=== PATIENT | female | born 1965 | race Asian ===

== ENCOUNTER → 2016-11-24 | Outpatient (CLI) | payer BC ==
[2016-11-24 09:15] LABS: ADD SCAN DIFF NO
[2016-11-24 09:18] LABS: BASOPHILS % 0.8 % (0.0-2.0); EOSINOPHILS # 0.1 10^3/ul (0.0-0.5); EOSINOPHILS % 1.9 % (0.0-7.0); HEMATOCRIT 39.9 % (37.0-47.0); HEMOGLOBIN 13.1 g/dl (12.0-16.0); LYMPHOCYTES # 1.2 10^3/ul (0.8-2.9); LYMPHOCYTES % 31.8 % (15.0-51.0); MEAN CORPUSCULAR HEMOGLOBIN 29.2 pg (29.0-33.0); MEAN CORPUSCULAR HGB CONC 32.8 g/dl (32.0-37.0); MEAN CORPUSCULAR VOLUME 89.1 fl (82.0-101.0); MEAN PLATELET VOLUME 9.4 fl (7.4-10.4); MONOCYTE # 0.3 10^3/ul (0.3-0.9); MONOCYTES % 7.2 % (0.0-11.0); NEUTROPHIL # 2.1 10^3/ul (1.6-7.5); PLATELET COUNT 394 10^3/UL (140-415); RED BLOOD COUNT 4.48 10^6/ul (4.20-5.40); RED CELL DISTRIBUTION WIDTH 13.5 % (11.5-14.5); WHITE BLOOD COUNT 3.6 10^3/ul (4.8-10.8)
[2016-11-24 09:40] LABS: ALBUMIN 4.9 g/dl (3.3-4.9); ALBUMIN/GLOBULIN RATIO 1.48; BILIRUBIN,INDIRECT 0.4 mg/dl (0-1.1); BILIRUBIN,TOTAL 0.4 mg/dl (0.2-1.3); CALCIUM 9.1 mg/dl (8.4-10.2); CREATININE 0.65 mg/dl (0.44-1.00); POTASSIUM 4.2 mmol/L (3.5-5.1); TOTAL PROTEIN 8.2 g/dl (6.1-8.1)
[2016-11-24 09:53] LABS: INR 0.91; PROTIME 12.3 Sec (12.2-14.2)
[2016-11-24 09:54] LABS: PARTIAL THROMBOPLASTIN TIME 34.5 Sec (25.0-35.0)
[2016-11-24 10:48] LABS: ADD UMIC YES; UR ASCORBIC ACID NEGATIVE (NEGATIVE); UR BILIRUBIN (Dip) NEGATIVE (NEGATIVE); UR BLOOD (Dip) 2+ mg/dL (NEGATIVE); UR CLARITY CLEAR (CLEAR); UR COLOR COLORLESS (YELLOW); UR GLUCOSE (Dip) NEGATIVE (NEGATIVE); UR KETONES (Dip) NEGATIVE (NEGATIVE); UR LEUKOCYTE ESTERASE (Dip) NEGATIVE Leu/ul (NEGATIVE); UR NITRITE (Dip) NEGATIVE (NEGATIVE); UR RBC 1 /HPF (0-5); UR SPECIFIC GRAVITY (Dip) 1.002 (1.003-1.030); UR TOTAL PROTEIN (Dip) NEGATIVE (NEGATIVE); UR UROBILINOGEN (Dip) NEGATIVE (NEGATIVE)
--- NOTE | 2016-11-24 12:34 | RADRPT ---
PROCEDURE: XR Chest. CLINICAL INDICATION: Cough. Bronchitis. TECHNIQUE: Two views. Frontal and lateral. COMPARISON: No prior study is available for comparison. FINDINGS: The lungs are clear. The heart size is normal. There is no pleural effusion. There is no pneumothorax. IMPRESSION: 1. Normal chest radiograph. RPTAT: QQ .Jason Rizzo MD, MD Date Time Electronically viewed and signed by .Jason Rizzo MD, on 11/24/2016 12:34 .R/
--- NOTE | 2016-11-24 13:47 | RADRPT ---
Vent Rate: 65 bpm RR Interval: 0 msec GA Interval: 172 msec QRS Duration: 76 msec QT Interval: 426 msec QTC Interval: 443 msec P-R-T [place] [facility]: 65 - 30 - 60 degrees Normal sinus rhythm Normal ECG Electronically Signed By: Brien Early [id number]
== END | disposition home or self-care (01) ==
LOC: LAB 08:43
PROVIDERS: ATTEND Internal Medicine
DX: J20.9 Acute bronchitis, unspecified (principal); D64.9 Anemia, unspecified; E78.5 Hyperlipidemia, unspecified; N39.0 Urinary tract infection, site not specified
CPT/HCPCS: 71020; 80053; 80061; 81001; 84702; 85025; 85610; 85730; 93005

== ENCOUNTER → 2017-02-20 | Outpatient (CLI) | payer BC ==
[2017-02-20 14:59] LABS: ABNORMAL IP MESSAGE 1; HEMATOCRIT 37.2 % (37.0-47.0); HEMOGLOBIN 11.9 g/dl (12.0-16.0); MEAN CORPUSCULAR HEMOGLOBIN 26.9 pg (29.0-33.0); MEAN PLATELET VOLUME 9.6 fl (7.4-10.4); NUCLEATED RED BLOOD CELLS% 0.1 /100WBC (0.0-0.0); PLATELET COUNT 302 10^3/UL (140-415); RED BLOOD COUNT 4.43 10^6/ul (4.20-5.40)
[2017-02-20 15:02] LABS: ADD UMIC YES; UR ASCORBIC ACID NEGATIVE (NEGATIVE); UR BILIRUBIN (Dip) NEGATIVE (NEGATIVE); UR BLOOD (Dip) 1+ mg/dL (NEGATIVE); UR CLARITY CLEAR (CLEAR); UR COLOR COLORLESS (YELLOW); UR GLUCOSE (Dip) NEGATIVE (NEGATIVE); UR KETONES (Dip) NEGATIVE (NEGATIVE); UR LEUKOCYTE ESTERASE (Dip) NEGATIVE Leu/ul (NEGATIVE); UR NITRITE (Dip) NEGATIVE (NEGATIVE); UR RBC 0 /HPF (0-5); UR SPECIFIC GRAVITY (Dip) 1.001 (1.003-1.030); UR TOTAL PROTEIN (Dip) NEGATIVE (NEGATIVE); UR UROBILINOGEN (Dip) NEGATIVE (NEGATIVE)
[2017-02-20 15:16] LABS: POSITIVE DIFF @See below
[2017-02-20 16:06] LABS: ANISOCYTOSIS 1+ (0-0); MICROCYTOSIS 1+ (0-0); MONOCYTES % (M) 6 % (0-11); MYELOCYTES % (M) 1 % (0-0); PLATELET ESTIMATE NORMAL; POLYCHROMASIA 1+ (0-0); PROMYELOCYTES #M 1.1 10^3/ul (0-0); PROMYELOCYTES % (M) 3 % (0-0); REACTIVE LYMPHOCYTES% (M) 2 % (0-0)
== END | disposition home or self-care (01) ==
LOC: LAB 13:37
PROVIDERS: ATTEND Internal Medicine
DX: N39.0 Urinary tract infection, site not specified (principal)
CPT/HCPCS: 81001; 85025; 87086

== ENCOUNTER → 2017-07-24 | Outpatient (CLI) | END | disposition home or self-care (01) ==

== ENCOUNTER → 2018-02-02 | Outpatient (CLI) | END | disposition home or self-care (01) ==

== ENCOUNTER 2018-06-10 10:06 | Inpatient (IN) | payer BC ==
[~2018-06-10] VITALS: Ht 162.6 cm; Wt 60.7 kg
[2018-06-10] MEDS ORDERED: NITROGLYCERIN 2% 1 GM OINT PKT TD STA (10:23)
[2018-06-10] MEDS ORDERED: ASPIRIN 81 MG TAB PO STA (10:23)
[2018-06-10] MEDS ORDERED: NITROGLYCERIN (SL) 0.4 MG TAB SL PRN (10:30)
[2018-06-10] MEDS ORDERED: ONDANSETRON 4 MG INJ IV STA (10:48)
[2018-06-10] MEDS ORDERED: morphine 4 MG/ML VIAL IV STA (10:48)
[2018-06-10] MEDS ORDERED: ANAS1TAB PO (11:04)
[2018-06-10] MEDS ORDERED: ALPR0.254 PO (11:04)
[2018-06-10] MEDS ORDERED: ERGO2000 PO (11:05)
[2018-06-10] MEDS ORDERED: OMEG-135 PO (11:05)
[2018-06-10] MEDS ORDERED: MELO15TA30 PO (11:06)
[2018-06-10] MEDS ORDERED: ACETAMINOPHEN 325 MG TAB PO PRN (12:00)
--- NOTE | 2018-06-10 13:40 | ERD ---
ER Documentation Chief Complaint Chief Complaint INTERMITTENT CHEST PAIN RADITING TO BACK X 2 DAYS HPI Patient is a 52-year-old female who presents with chest pain. Her symptoms started on Thursday. The pain comes and goes and lasts seconds at a time but it is worsening. Now she has shortness of breath with minimal exertion like walking across the parking lot. She describes it as a "pressure". Upon review of old medical records this is the patient's first visit to the emergency department. Her primary doctor is Dr. Phililps. ROS All systems reviewed and are negative except as per history of present illness. Medications Home Meds Reported Medications Meloxicam* (Mobic*) 15 Mg Tablet, 15 MG PO DAILY, #30 TAB 06/10/18 Ergocalciferol (Vitamin D2) (VITAMIN D2) 2,000 Unit Tablet, 2000 UNIT PO DAILY, TAB 06/10/18 Sagle-3 Fatty Acids/Fish Oil (Fish Oil 1,000 mg Capsule) 1 Each Capsule, 1000 EACH PO BID, CAP 06/10/18 Alprazolam* (Alprazolam*) 0.25 Mg Tablet, 0.25 MG PO TID PRN for ANXIETY, TAB 06/10/18 Anastrozole* (Arimidex*) 1 Mg Tablet, 1 MG PO DAILY, #30 TAB 06/10/18 Allergies Allergies: Coded Allergies: adhesive tape (Verified Allergy, Severe, 06/10/18) PMhx/Soc History of Surgery: Yes (Rt. mastectomy) Hx Miscellaneous Medical Probl: Yes (Rt. breast CA, Chemotherapy in 2017) Hx Alcohol Use: No Hx Substance Use: No Hx Tobacco Use: No Smoking Status: Never smoker FmHx Family History: coronary disease Physical Exam Vitals Vital Signs Date Temp Pulse Resp B/P (MAP) Pulse Ox O2 O2 Flow FiO2 Time Delivery Rate 06/10/18 73 20 137/82 100 Nasal 12:21 (100) Cannula 06/10/18 Nasal 11:01 Cannula 06/10/18 99.0 106 18 157/100 98 10:07 (119) Physical Exam Const: No acute distress Head: Atraumatic Eyes: Normal Conjunctiva ENT: Normal External Ears, Nose and Mouth. Neck: Full range of motion. No meningismus. Resp: Clear to auscultation bilaterally Cardio: Regular rate and rhythm, no murmurs Abd: Soft, non tender, non distended. Normal bowel sounds Skin: No petechiae or rashes Back: No midline or flank tenderness Ext: No cyanosis, or edema Neur: Awake and alert Psych: Normal Mood and Affect Result Diagram: 06/10/18 1045 06/10/18 1045 Results 24 hrs Laboratory Tests Test 06/10/18 10:45 White Blood Count 6.9 10^3/ul Red Blood Count 4.64 10^6/ul Hemoglobin 13.6 g/dl Hematocrit 41.4 % Mean Corpuscular Volume 89.2 fl Mean Corpuscular Hemoglobin 29.3 pg Mean Corpuscular Hemoglobin Concent 32.9 g/dl Red Cell Distribution Width 12.6 % Platelet Count 276 10^3/UL Mean Platelet Volume 9.4 fl Immature Granulocytes % 0.300 % Neutrophils % 72.7 % Lymphocytes % 19.9 % Monocytes % 6.3 % Eosinophils % 0.4 % Basophils % 0.4 % Nucleated Red Blood Cells % 0.0 /100WBC Immature Granulocytes # 0.020 10^3/ul Neutrophils # 5.0 10^3/ul Lymphocytes # 1.4 10^3/ul Monocytes # 0.4 10^3/ul Eosinophils # 0.0 10^3/ul Basophils # 0.0 10^3/ul Nucleated Red Blood Cells # 0.0 10^3/ul Sodium Level 140 mmol/L Potassium Level 4.0 mmol/L Chloride Level 103 mmol/L Carbon Dioxide Level 25 mmol/L Anion Gap 12 Blood Urea Nitrogen 13 mg/dl Creatinine 0.54 mg/dl Est Glomerular Filtrat Rate mL/min > 60 mL/min Glucose Level 121 mg/dl Calcium Level 9.8 mg/dl Troponin I < 0.012 ng/ml Current Medications Medications Dose Sig/Jony Start Time Status Last (Trade) Ordered Route PRN Stop Time Admin Dose Reason Admin Aspirin 162 mg ONCE STAT 06/10/18 DC 06/10/18 (Aspirin) PO 10:23 10:56 06/10/18 10:25 1 inch ONCE STAT 06/10/18 DC 06/10/18 Nitroglycerin TD 10:23 10:56 06/10/18 10:25 (Nitroglyceri n 2% Oint) 1 tab Q5M UP TO 3 06/10/18 Nitroglycerin DOSES PRN 10:30 SL pain (Nitroglyceri n (Sl Tab) 0.4 Mg) Morphine 4 mg ONCE STAT 06/10/18 DC 06/10/18 Sulfate IV 10:48 11:00 (morphine) 06/10/18 10:49 Ondansetron 4 mg ONCE STAT 06/10/18 DC 06/10/18 HCl (Zofran IV 10:48 11:00 Inj) 06/10/18 10:49 Ondansetron 4 mg ER BRIDGE 06/10/18 HCl (Zofran PRN IV 12:00 Inj) vomiting 06/11/18 11:59 650 mg ER BRIDGE 06/10/18 Acetaminophen PRN PO pain 12:00 (Tylenol 06/11/18 11:59 Tab) Procedures/MDM EKG #1 read by me: Rate/Rhythm: Sinus tachycardia at a rate of 101 Intervals: Normal Impression: Sinus tachycardia without ischemia EKG #2 read by me: Rate/Rhythm: Regular rate and rhythm at a rate of 72 Intervals: Normal Impression: No evidence of ischemia or arrhythmia Chest x-ray read by radiology. Patient is a 52-year-old female with cardiac risk factors who presents with chest pain. I am concerned for possible acute coronary syndrome. I doubt pneumonia, pneumothorax, pulmonary embolism, or aortic dissection. The patient was given aspirin and nitroglycerin. She will be admitted to the care of Dr. Phillips. I spoke with Dr. Dyer who is covering for Dr. Phillips. Departure Diagnosis: Primary Impression: Chest pain Chest pain type: unspecified Qualified Codes: R07.9 - Chest pain, unspecified Condition: MIRIAM Dwyer MD Jun 10, 2018 13:40
[2018-06-10 15:01] VITALS: Ht 162.6 cm; Wt 60.7 kg
[2018-06-10 15:14] VITALS: BP 133/78; PULSE 80; RESP 19
--- NOTE | 2018-06-10 15:52 | CONS ---
Assessment/Plan Assessment/Plan Assessment/Plan (Daily) atypical chest pain- unclear etiology, r/o for acs need serial trop and ekg. echo pending. consider msk etiology as well - serial trop/ekg - echo - pain mgmt - consider stress in am if not improved. and r/o for ACS Consultation Date/Type/Reason Admit Date/Time Jun 10, 2018 at 11:42 Date of Consultation: Jun 10, 2018 Type of Consult Cardiology Reason for Consultation chest pain Requesting Provider: TRUPTI STEVENSON MD Date/Time of Note DATE: 06/10/18 TIME: 15:48 Hx of Present Illness 52 y.o. with chest pain, states started thursday.at work. resting. has pressure/pain in mid chest going to neck and back. no associated symptoms. no relation to exertion. worse with standing possibly. coming/going every few minutes. lasts a few seconds when it comes. states went to sleep that night, no pain, but had recurrence wed on/off again. then this am noticed increased sob on exertion walking into work. no n/v, dizziness, palpitations, fainting. no diaphoresis or sob with the pain. now with pain in neck and back, soreness lingering. not improved with nsaids. better with morphine she states. ekg negative NSR with poor r wave progression no actue abnl. trop neg x 1 all other systems negative Past Medical History breast ca s/p mastectomy chemo Home Meds Reported Medications Meloxicam* (Mobic*) 15 Mg Tablet, 15 MG PO DAILY, #30 TAB 06/10/18 Ergocalciferol (Vitamin D2) (VITAMIN D2) 2,000 Unit Tablet, 2000 UNIT PO DAILY, TAB 06/10/18 [place]-3 Fatty Acids/Fish Oil (Fish Oil 1,000 mg Capsule) 1 Each Capsule, 1000 EACH PO BID, CAP 06/10/18 Alprazolam* (Alprazolam*) 0.25 Mg Tablet, 0.25 MG PO TID PRN for ANXIETY, TAB 06/10/18 Anastrozole* (Arimidex*) 1 Mg Tablet, 1 MG PO DAILY, #30 TAB 06/10/18 Medications Current Medications Nitroglycerin (Nitroglycerin (Sl Tab) 0.4 Mg) 1 tab Q5M UP TO 3 DOSES PRN SL pain; Start 06/10/18 at 10:30 Ondansetron HCl (Zofran Inj) 4 mg ER BRIDGE PRN IV vomiting; Start 06/10/18 at 12:00; Stop 06/11/18 at 11:59 Acetaminophen (Tylenol Tab) 650 mg ER BRIDGE PRN PO pain; Start 06/10/18 at 12:00; Stop 06/11/18 at 11:59 Alprazolam (Xanax) 0.25 mg TID PRN PO ANXIETY; Start 06/10/18 at 16:00; Status UNV Anastrozole (Arimidex) 1 mg DAILY PO ; Start 06/10/18 at 16:00; Status UNV Meloxicam (Mobic) 15 mg DAILY PO ; Start 06/10/18 at 16:00; Status UNV Miscellaneous Information 2,000 unit DAILY PO ; Start 06/10/18 at 16:00; Status UNV Miscellaneous Information 1,000 each BID PO ; Start 06/10/18 at 21:00; Status UNV Allergies: Coded Allergies: adhesive tape (Verified Allergy, Severe, 06/10/18) Past Surgical History mastectomy Family History Significant Family History: no pertinent family hx Social History Alcohol Use: none Smoking Status: Never smoker Drug Use: none Exam/Review of Systems Vital Signs Vitals Vital Signs Date Temp Pulse Resp B/P (MAP) Pulse Ox O2 O2 Flow FiO2 Time Delivery Rate 06/10/18 97.8 80 19 133/78 96 Room Air 15:14 (96) Exam Constitutional: alert, oriented, well developed Psych: no complaints, nl mood/affect Head: normocephalic, atraumatic Eyes: nl conjunctiva, EOMI, nl lids ENMT: nl external ears & nose, nl lips & teeth, other (reduced rom of neck with ttp R trap) Neck: supple, non-tender Respiratory: clear to auscultation, normal air movement Cardiovascular: regular rate and rhythm; No diastolic murmur, No edema, No jugular venous distention (JVD), No systolic murmur, No S3, No S4 Gastrointestinal: soft, nl liver, spleen, non-tender Musculoskeletal: nl extremities to inspection, nl gait and stance Extremities: normal pulses Neurological: DIGITAL STRATEGY SPECIALIST II-XII intact, nl mental status, nl speech, nl strength Skin: nl turgor Labs Result Diagram: 06/10/18 1045 06/10/18 1045 Results 24hrs Laboratory Tests Test 06/10/18 10:45 White Blood Count 6.9 # Red Blood Count 4.64 Hemoglobin 13.6 Hematocrit 41.4 Mean Corpuscular Volume 89.2 Mean Corpuscular Hemoglobin 29.3 Mean Corpuscular Hemoglobin Concent 32.9 Red Cell Distribution Width 12.6 Platelet Count 276 Mean Platelet Volume 9.4 Immature Granulocytes % 0.300 Neutrophils % 72.7 Lymphocytes % 19.9 Monocytes % 6.3 Eosinophils % 0.4 Basophils % 0.4 Nucleated Red Blood Cells % 0.0 Immature Granulocytes # 0.020 Neutrophils # 5.0 Lymphocytes # 1.4 Monocytes # 0.4 Eosinophils # 0.0 Basophils # 0.0 Nucleated Red Blood Cells # 0.0 Sodium Level 140 Potassium Level 4.0 Chloride Level 103 Carbon Dioxide Level 25 Anion Gap 12 Blood Urea Nitrogen 13 Creatinine 0.54 Est Glomerular Filtrat Rate mL/min > 60 Glucose Level 121 Calcium Level 9.8 Troponin I < 0.012 Imaging Imaging cxr report reviewed SHAQ ROBINS Jun 10, 2018 15:52
[2018-06-10] MEDS: MELOXICAM 15 MG TAB PO SCH (16:00)
[2018-06-10] MEDS ORDERED: ZOLPIDEM 5 MG TAB PO PRN (16:00)
[2018-06-10] MEDS: CHOLECALCIFEROL 2,000 UNIT CAP PO SCH (16:00)
[2018-06-10] MEDS: ANASTROZOLE 1 MG TAB PO SCH (16:00)
[2018-06-10] MEDS ORDERED: ALPRAZOLAM 0.25 MG TAB PO PRN (16:00)
[2018-06-10 16:18] VITALS: PULSE 73
[2018-06-10] MEDS: morphine 4 MG/ML VIAL IV PRN (18:07)
--- NOTE | 2018-06-10 18:42 | NUR ---
EOSS: PT ADMITTED THIS PM. DX CHEST PAIN. ORIENTED TO ROOM AND UNIT ROUTINES. PLACED ON MONITOR. ADMITTING ORDERS GIVEN BY DR STEVENSON. TROP X2 NEG. ALL NEEDS MET. CONTINUE POC.
[2018-06-10] MEDS ORDERED: PANTOPRAZOLE (EC) 40 MG TAB PO ONE (19:30)
[2018-06-10] MEDS ORDERED: FISH OIL 1,000 MG CAP PO ONE (19:47)
[2018-06-10] MEDS ORDERED: ZOLPIDEM 5 MG TAB ONE (19:50)
--- NOTE | 2018-06-10 19:57 | HP ---
DATE OF ADMISSION: 06/10/2018 CHIEF COMPLAINT: Chest pain for 2 days. HISTORY OF PRESENT ILLNESS: The patient is a 52-year-old female who presents with complaints of ches t pain for the last 2 days, onset typically at rest, pressure-like, substernal, lasting 5 to 7 second s up to 7/10 severity, with some radiation to the back pain. Pain is episodic and will occur multipl e times in a day. The patient continued to have the pain, but on the morning of admission, the patie nt developed some dyspnea on exertion walking to work. No associated pain at that time. Subsequentl y, pain became more frequent and stronger so the patient presented to the ER. Pain has occurred 10 t imes today, similar location, 7/10 severity lasting approximately 5 seconds. Pain has radiation to t he upper back. No radiation to the jaw or down the arm. Denies any associated symptoms of dizziness , palpitations, shortness of breath, aside from dyspnea on exertion which was noted previously. The patient denies any history of hypertension, hyperlipidemia, diabetes. The patient does not smoke and no family history of early coronary artery disease. In the ER, the patient was given aspirin and ni tro paste. He was also given some morphine. Symptoms have improved, but she still gets episodes of pain in similar character. The patient states symptoms are slightly worse getting up or swallowing. She also has had multiple other musculoskeletal complaints including back pain, right shoulder pain which she has been treating with meloxicam. The patient is admitted for further management. PAST MEDICAL HISTORY: Breast cancer, osteoarthritis, anxiety, degenerative disk disease in the neck. OPERATIONS: For breast cancer, Lasik and the cyst on her neck. MEDICATIONS: 1. Pantoprazole 40 mg daily. 2. Alprazolam 0.5 mg q.8 hours p.r.n. 3. Arimidex 1 mg daily. 4. Meloxicam 15 mg daily. ALLERGIES: 1. ERYTHROMYCIN. 2. LATEX. SOCIAL HISTORY: The patient denies any tobacco use. Occasional alcohol use. She is . FAMILY HISTORY: The patient's father at 72 from CVA and CO. Mother with diabetes and hypertens ion. Sister at 56 from colon cancer. The patient has a brother and sister who are alive and we ll. REVIEW OF SYSTEMS: GENERAL: The patient denies any fever, chills, night sweats, other general complaints. HEENT: The patient denies any headache, congestion, rhinorrhea, sore throat or other HEENT complaint s. RESPIRATORY: As noted in HPI. CARDIOVASCULAR: As noted in HPI. GASTROINTESTINAL: The patient denies any abdominal pain. She has had some mild nausea with morphine . No diarrhea, constipation, bright red blood per rectum or melena. GENITOURINARY: The patient denies any dysuria, frequency or other symptoms. NEUROLOGIC: The patient denies any numbness, tingling, weakness or other focal neurologic symptoms. PHYSICAL EXAMINATION: VITAL SIGNS: Temperature 97.8, pulse 80, blood pressure 133/78, pulse ox 96% on room air. GENERAL APPEARANCE: This is a well-developed, well-nourished female in no acute distress. She appears nontoxic. HEENT: Normocephalic, atraumatic. Sclerae are anicteric. Oropharynx is clear. NECK: Supple without adenopathy, no bruits. LUNGS: Clear to auscultation. CARDIAC: Regular rate and rhythm. There is no reproducible chest wall tenderness to palpation. ABDOMEN: Bowel sounds are present. Abdomen is soft, nontender, nondistended. EXTREMITIES: Without cyanosis, clubbing or edema. NEUROLOGIC: The patient is alert and oriented x3 with no focal neurologic findings. LABORATORY DATA: White blood cell count 6.9, hemoglobin 13.6, platelets 276. Sodium 140, potassium 4, chloride 103, bicarbonate 25, BUN 13, creatinine 0.54, glucose 121. Troponin less than 0.012. DIAGNOSTIC DATA: Chest x-ray shows no acute disease. EKG: Sinus rhythm with poor R-wave progressio n, no acute changes. IMPRESSION: 1. Chest pain, atypical for ischemia but persistent, possibly musculoskeletal with multiple other mu sculoskeletal complaints. 2. Anxiety. PLAN: Admit to telemetry. Serial troponins. Cardiology consult. Analgesics. A 2D echo, possible stress testing as per cardiology. Continue outpatient meds. Dictated By: TRUPTI MENSAH/JAIMEE Conf#: [id number] DID#: [id number] CC: DEREK MONROE MD; SHAQ ROBINS MD;*EndCC*
[2018-06-10 20:00] VITALS: PULSE 60
[2018-06-10] MEDS: ALPRAZOLAM 0.5 MG TAB PO PRN (20:00)
[2018-06-10] MEDS: ZOLPIDEM 5 MG TAB PO PRN (20:00)
[2018-06-10] MEDS: ONDANSETRON 4 MG INJ IV PRN (20:01)
[2018-06-10 20:12] VITALS: BP 132/79; PULSE 87; RESP 18
[2018-06-10] MEDS ORDERED: FISH OIL 1,000 MG CAP PO SCH (21:00)
[2018-06-11] VITALS (12 sets, daily range): BP systolic 128–186; BP diastolic 71–92; PULSE 59–107; RESP 18–20
[2018-06-11] MEDS ORDERED: PANTOPRAZOLE (EC) 40 MG TAB PO ONE (04:55)
[2018-06-11] MEDS ORDERED: PANTOPRAZOLE (EC) 40 MG TAB PO SCH (06:00)
[2018-06-11] MEDS: ALPRAZOLAM 0.5 MG TAB PO PRN ×2 (06:03→20:27)
[2018-06-11] MEDS: morphine 4 MG/ML VIAL IV PRN ×3 (06:03→20:28)
[2018-06-11] MEDS: ONDANSETRON 4 MG INJ IV PRN ×2 (06:03→14:54)
--- NOTE | 2018-06-11 06:53 | NUR ---
EOSS Pt AOx4. Vitals signs stable. Sinus rhythm on monitor. Ambulatory. PRN morphine was given for pain. Ambulatory and steady. No acute changes overnight. No s/sx or c/o distress//SOB. Educated pt on fall precautions. Hourly rounding done. Will endorse to AM shift.
--- NOTE | 2018-06-11 07:14 | RADRPT ---
Echocardiogram Report Patient Name: MICHAELLE HOLLINGSWORTH Gender: Female Date: 1965 Study Date: 10-Jun-2018 Machine Setter: Danial Acosta [facility] Location: [facility] Ref. Physician: MIRIAM DELA CRUZ Quality: Technically Difficult Study Procedures: Transthoracic echocardiogram with complete 2D, M-Mode, and doppler examination. Indications: Chest Pain. 2D/M Mode Doppler Measurement Value Normal Ranges Measurement Value Normal Ranges LVIDd 2D 3.8 3.5 - 5.6 cm AV Peak Benny 1.4 m/sec LVIDs 2D 2.4 2.1 - 4.1 cm AV Peak PG 8.0 mmHg LVPWd 2D 1.1 0.6 - 1.1 cm LVOT Peak Benny 1.0 m/sec IVSd 2D 1.1 0.6 - 1.1 cm LVOT Peak PG 4.0 mmHg AoR Diam 2D 2.1 2.0 - 3.7 cm MV E Peak Benny 0.7 m/sec LA/Ao 2D 1 0 - 1 MV A Peak Benny 0.9 m/sec LA Dimen 2D 3.0 2.3 - 4.0 cm MV E/A 0.8 MV Decel Time 187 msec Lat E` Benny 0.1 m/sec Lateral E/E` 6.9 Med E` Benny 0.1 m/sec MV E/A 0.8 TR Peak Benny 2.3 m/sec TR Peak PG 20.0 mmHg RVSP 23.0 mmHg Findings Left Ventricle: Normal left ventricular systolic function. Normal left ventricular cavity size. Left ventricular wall thickness upper limits of normal. Ejection fraction is visually estimated at 60 %. Tissue Doppler/Mitral Doppler indices are consistent with impaired relaxation (Stage I diastolic dysfunction). Right Ventricle: Normal right ventricular size. Normal right ventricular systolic function. Left Atrium: The left atrium is normal in size. Right Atrium: The right atrium is normal in size. Mitral Valve: Mild mitral leaflet calcification. Mild mitral annular calcification. Trace mitral regurgitation. Aortic Valve: No significant aortic stenosis or insufficiency. Aortic cusps appear mildly calcified. Tricuspid Valve: Normal appearance of the tricuspid valve. Estimated peak PA systolic pressure 23 mmHg. There is trace tricuspid regurgitation. Pulmonic Valve: Pulmonic valve not well visualized. There is trace pulmonic regurgitation. Pericardium: Normal pericardium with no significant pericardial effusion. Aorta: Normal aortic root. IVC: Normal size and normal respiratory collapse consistent with normal right atrial pressure. Conclusions Normal left ventricular systolic function. Normal left ventricular cavity size. Left ventricular wall thickness upper limits of normal. Ejection fraction is visually estimated at 60 %. Tissue Doppler/Mitral Doppler indices are consistent with impaired relaxation (Stage I diastolic dysfunction). Normal right ventricular size. Normal right ventricular systolic function. The left atrium is normal in size. No significant aortic stenosis or insufficiency. Aortic cusps appear mildly calcified. Normal appearance of the tricuspid valve. Estimated peak PA systolic pressure 23 mmHg. There is trace tricuspid regurgitation. Normal pericardium with no significant pericardial effusion. Normal aortic root. Normal size and normal respiratory collapse consistent with normal right atrial pressure. No Vegetation, masses, or thrombi seen. Electronically Signed By: Alan Garcia 11-Jun-2018 07:12:58 -0800 Patient Name: MICHAELLE HOLLINGSWORTH Study Date: 10-Jun-2018 [id number]
--- NOTE | 2018-06-11 08:17 | PN ---
Date/Time of Note Date/Time of Note DATE: 06/11/18 TIME: 08:14 Assessment/Plan VTE Prophylaxis Risk score (from Ns)>0 risk: 2 SCD applied (from [facility]): No SCD contraindicated: other Pharmacological prophylaxis: other Lines/Catheters IV Catheter Type (from [email or web address] Saline Lock Assessment/Plan Assessment/Plan A: chest pain anxiety low back pain P: further cp w/u per cardiology flexeril prn cont other rx Result Diagram: 06/11/1851906/11/18519 Results 24hrs Laboratory Tests Test 06/10/18 10:45 06/10/18 16:13 06/10/18 23:13 06/11/18 05:20 White Blood Count 6.9 # 6.8 Red Blood Count 4.64 4.31 Hemoglobin 13.6 12.7 Hematocrit 41.4 38.1 Mean Corpuscular 89.2 88.4 Volume Mean Corpuscular 29.3 29.5 Hemoglobin Mean Corpuscular 32.9 33.3 Hemoglobin Concent Red Cell 12.6 12.5 Distribution Width Platelet Count 276 296 Mean Platelet Volume 9.4 9.6 Immature 0.300 0.300 Granulocytes % Neutrophils % 72.7 72.4 Lymphocytes % 19.9 19.2 Monocytes % 6.3 7.4 Eosinophils % 0.4 0.4 Basophils % 0.4 0.3 Nucleated Red Blood 0.0 0.0 Cells % Immature 0.020 0.020 Granulocytes # Neutrophils # 5.0 4.9 Lymphocytes # 1.4 1.3 Monocytes # 0.4 0.5 Eosinophils # 0.0 0.0 Basophils # 0.0 0.0 Nucleated Red Blood 0.0 0.0 Cells # Sodium Level 140 140 Potassium Level 4.0 3.9 Chloride Level 103 97 Carbon Dioxide Level 25 29 Anion Gap 12 14 H Blood Urea Nitrogen 13 11 Creatinine 0.54 0.60 Est Glomerular > 60 > 60 Filtrat Rate mL/min Glucose Level 121 106 Calcium Level 9.8 9.3 Troponin I < 0.012 < 0.012 < 0.012 Creatine Kinase 54 52 Creatine Kinase 0.8 0.5 Index Creatinine Kinase MB 0.42 0.26 (Mass) Total Bilirubin 0.6 Direct Bilirubin 0.00 Indirect Bilirubin 0.6 Aspartate Amino 21 Transf (AST/SGOT) Alanine 18 Aminotransferase (AL T/SGPT) Alkaline Phosphatase 62 Total Protein 7.5 Albumin 4.1 Globulin 3.40 H Albumin/Globulin 1.20 Ratio Triglycerides Level 71 Cholesterol Level 232 H LDL Cholesterol, 134 Calculated HDL Cholesterol 84 Cholesterol/HDL 2.7 Ratio Thyroid Stimulating 3.260 Hormone (TSH) Subjective 24 Hr Interval Summary Free Text/Dictation Pt with improved cp, neck pain. No sob. Has recurrent low back pain, was using flexeril at home. No weakness, bowel or bladder incontinence. Exam/Review of Systems Exam Vitals Vital Signs Date Temp Pulse Resp B/P (MAP) Pulse Ox O2 O2 Flow FiO2 Time Delivery Rate 06/11/18 98.0 85 20 128/78 99 Room Air 07:15 (95) Intake and Output 06/10/18 06/10/18 06/11/18 1515:00 23:00 07:00 IntakeIntake Total 100 ml BalanceBalance 100 ml Additional Comments gen- nad, nontoxic lungs- CTA heart- RRR abd- +BS, soft, nontender ext- no edema Results Results 24hrs Laboratory Tests Test 06/10/18 10:45 06/10/18 16:13 06/10/18 23:13 06/11/18 05:20 White Blood Count 6.9 # 6.8 Red Blood Count 4.64 4.31 Hemoglobin 13.6 12.7 Hematocrit 41.4 38.1 Mean Corpuscular 89.2 88.4 Volume Mean Corpuscular 29.3 29.5 Hemoglobin Mean Corpuscular 32.9 33.3 Hemoglobin Concent Red Cell 12.6 12.5 Distribution Width Platelet Count 276 296 Mean Platelet Volume 9.4 9.6 Immature 0.300 0.300 Granulocytes % Neutrophils % 72.7 72.4 Lymphocytes % 19.9 19.2 Monocytes % 6.3 7.4 Eosinophils % 0.4 0.4 Basophils % 0.4 0.3 Nucleated Red Blood 0.0 0.0 Cells % Immature 0.020 0.020 Granulocytes # Neutrophils # 5.0 4.9 Lymphocytes # 1.4 1.3 Monocytes # 0.4 0.5 Eosinophils # 0.0 0.0 Basophils # 0.0 0.0 Nucleated Red Blood 0.0 0.0 Cells # Sodium Level 140 140 Potassium Level 4.0 3.9 Chloride Level 103 97 Carbon Dioxide Level 25 29 Anion Gap 12 14 H Blood Urea Nitrogen 13 11 Creatinine 0.54 0.60 Est Glomerular > 60 > 60 Filtrat Rate mL/min Glucose Level 121 106 Calcium Level 9.8 9.3 Troponin I < 0.012 < 0.012 < 0.012 Creatine Kinase 54 52 Creatine Kinase 0.8 0.5 Index Creatinine Kinase MB 0.42 0.26 (Mass) Total Bilirubin 0.6 Direct Bilirubin 0.00 Indirect Bilirubin 0.6 Aspartate Amino 21 Transf (AST/SGOT) Alanine 18 Aminotransferase (AL T/SGPT) Alkaline Phosphatase 62 Total Protein 7.5 Albumin 4.1 Globulin 3.40 H Albumin/Globulin 1.20 Ratio Triglycerides Level 71 Cholesterol Level 232 H LDL Cholesterol, 134 Calculated HDL Cholesterol 84 Cholesterol/HDL 2.7 Ratio Thyroid Stimulating 3.260 Hormone (TSH) TRUPTI STEVENSON MD Jun 11, 2018 08:17
[2018-06-11] MEDS: CHOLECALCIFEROL 2,000 UNIT CAP PO SCH (08:38)
[2018-06-11] MEDS: MELOXICAM 15 MG TAB PO SCH (08:38)
[2018-06-11] MEDS: FISH OIL 1,000 MG CAP PO SCH (08:39)
--- NOTE | 2018-06-11 08:59 | CONS ---
Assessment/Plan Assessment/Plan Assessment/Plan (Daily) atypical cp- pt has r/o for acs, still with pain improved with morphine, there was plan for exercise stress test however treadmill does not function and unable to obtain. given continued pain would recommend nuclear stress test as alternative, but will need to be done tomorrow am given pt already ate lunch with coffee. cont pain control per primary team and assess for non cardiac etiologies of pain as well d/w dr. baldwin Consultation Date/Type/Reason Admit Date/Time Jun 10, 2018 at 11:42 Initial Consult Date Type of Consult Cardiology Date/Time of Note DATE: 06/11/18 TIME: 08:59 24 HR Interval Summary Free Text/Dictation still with intermittent chest pain. improved with morphine. no sob, palpitaitons, dizziness, n/v,sweating. tele reviewed nsr no events Detailed Summary Eyes: no complaints ENT: bleeding Cardiovascular: chest pain Gastrointestinal: no complaints Genitourinary: no complaints Exam/Review of Systems Vital Signs Vitals Vital Signs Date Temp Pulse Resp B/P (MAP) Pulse Ox O2 O2 Flow FiO2 Time Delivery Rate 06/11/18 98.0 85 20 128/78 99 Room Air 07:15 (95) Intake and Output 06/10/18 06/10/18 06/11/18 1515:00 23:00 07:00 IntakeIntake Total 100 ml BalanceBalance 100 ml Exam Constitutional: alert, oriented, well developed Psych: no complaints, nl mood/affect Head: normocephalic, atraumatic Eyes: nl conjunctiva, EOMI ENMT: nl lips & teeth, nl nasal mucosa & septum Neck: supple, non-tender; No jvd Respiratory: clear to auscultation, normal air movement Cardiovascular: regular rate and rhythm, nl pulses; No bruits, No diastolic murmur, No edema, No systolic murmur, No S3, No S4 Gastrointestinal: soft, nl liver, spleen, non-tender Musculoskeletal: nl extremities to inspection, nl gait and stance Extremities: normal pulses 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, nl mental status, nl speech, nl strength Skin: nl turgor Labs Result Diagram: 06/11/18 0520 06/11/18 0520 Results 24hrs Laboratory Tests Test 06/10/18 10:45 06/10/18 16:13 06/10/18 23:13 06/11/18 05:20 White Blood Count 6.9 # 6.8 Red Blood Count 4.64 4.31 Hemoglobin 13.6 12.7 Hematocrit 41.4 38.1 Mean Corpuscular 89.2 88.4 Volume Mean Corpuscular 29.3 29.5 Hemoglobin Mean Corpuscular 32.9 33.3 Hemoglobin Concent Red Cell 12.6 12.5 Distribution Width Platelet Count 276 296 Mean Platelet Volume 9.4 9.6 Immature 0.300 0.300 Granulocytes % Neutrophils % 72.7 72.4 Lymphocytes % 19.9 19.2 Monocytes % 6.3 7.4 Eosinophils % 0.4 0.4 Basophils % 0.4 0.3 Nucleated Red Blood 0.0 0.0 Cells % Immature 0.020 0.020 Granulocytes # Neutrophils # 5.0 4.9 Lymphocytes # 1.4 1.3 Monocytes # 0.4 0.5 Eosinophils # 0.0 0.0 Basophils # 0.0 0.0 Nucleated Red Blood 0.0 0.0 Cells # Sodium Level 140 140 Potassium Level 4.0 3.9 Chloride Level 103 97 Carbon Dioxide Level 25 29 Anion Gap 12 14 H Blood Urea Nitrogen 13 11 Creatinine 0.54 0.60 Est Glomerular > 60 > 60 Filtrat Rate mL/min Glucose Level 121 106 Calcium Level 9.8 9.3 Troponin I < 0.012 < 0.012 < 0.012 Creatine Kinase 54 52 Creatine Kinase 0.8 0.5 Index Creatinine Kinase MB 0.42 0.26 (Mass) Total Bilirubin 0.6 Direct Bilirubin 0.00 Indirect Bilirubin 0.6 Aspartate Amino 21 Transf (AST/SGOT) Alanine 18 Aminotransferase (AL T/SGPT) Alkaline Phosphatase 62 Total Protein 7.5 Albumin 4.1 Globulin 3.40 H Albumin/Globulin 1.20 Ratio Triglycerides Level 71 Cholesterol Level 232 H LDL Cholesterol, 134 Calculated HDL Cholesterol 84 Cholesterol/HDL 2.7 Ratio Thyroid Stimulating 3.260 Hormone (TSH) SHAQ ROBINS Jun 11, 2018 08:59
[2018-06-11] MEDS: ANASTROZOLE 1 MG TAB PO SCH (11:05)
--- NOTE | 2018-06-11 11:05 | NUR ---
WITNESSED [facility] TO ADMINISTER ARIMIDEX 1MG DAILY FOR BREAST CA.PER PATIENT REPORT SHE TAKES ARIMIDEX FOR ALMOST 2 YRS NOW.PATIENT WAS PROVIDED PRINTED DRUG INFORMATION ABOUT ARIMIDEX AND PT WAS ALSO VERBALLY INFORMED ABOUT POSSIBLE SIDE EFFECTS .EMPHASIZED HAND WASHING AND DOUBLE FLUSHING WITH BATHROOM USE.PATIENT WAS RECEPTIVE WITH TEACHING AND VERBALIZED UNDERSTANDING.
[2018-06-11] MEDS: PANTOPRAZOLE (EC) 40 MG TAB PO SCH (17:26)
[2018-06-11] MEDS: DOCUSATE SODIUM 100 MG CAP PO PRN (17:26)
--- NOTE | 2018-06-11 18:56 | NUR ---
EOSS: PT WAS NPO FOR STRESS TEST THIS AFTERNOON.HOWEVER UNABLE TO PERFORM DUE TO WALKER MALFUNCTION. TO BE NPO PM .TEST TO BE DONE IN AM. ANXIETY NOTED DURING DAY, REQUESTING XANAX ALL TIME. INSTRUCTED ON MEDITATION AND BREATHING TECHNIQUES ALTERNATIVES.ALL NEEDS MET. CONTINUE POC.
[2018-06-11] MEDS: CYCLOBENZAPRINE 10 MG TAB PO PRN (20:27)
[2018-06-11] MEDS: ZOLPIDEM 5 MG TAB PO PRN (20:27)
[2018-06-12] VITALS (12 sets, daily range): BP systolic 90–158; BP diastolic 64–88; PULSE 62–98; RESP 18
[2018-06-12] MEDS: morphine 4 MG/ML VIAL IV PRN ×2 (05:00→14:08)
[2018-06-12] MEDS: ONDANSETRON 4 MG INJ IV PRN (05:00)
[2018-06-12] MEDS: PANTOPRAZOLE (EC) 40 MG TAB PO SCH ×2 (05:02→18:21)
[2018-06-12] MEDS: ALPRAZOLAM 0.5 MG TAB PO PRN ×2 (05:02→14:00)
[2018-06-12] MEDS: CYCLOBENZAPRINE 10 MG TAB PO PRN ×2 (05:02→20:02)
[2018-06-12] MEDS: DOCUSATE SODIUM 100 MG CAP PO PRN ×2 (05:02→14:08)
--- NOTE | 2018-06-12 06:31 | NUR ---
EOSS Pt AOx4. VS stable. SR on monitor. PRN morphine & Flexeril given for pain, Xanax and Ambien given for insomnia and anxiety. Pt feels constipated, PRN colace and prune juice provided. No acute changes overnight. Pt placed on NPO since midnight as per Efrain RN endorsed, educated not to drink coffee nor any caffeinated drinks as well prior to stress test for today. Needs attended. Will endorse to AM shift.
[2018-06-12] MEDS ORDERED: REGADENOSON 0.4 MG/5 ML SYG ONE (09:23)
--- NOTE | 2018-06-12 10:02 | CONS ---
Assessment/Plan Assessment/Plan Assessment/Plan (Daily) atypical cp- pt has r/o for acs, still with pain improved with morphine, there was plan for exercise stress test however treadmill does not function and unable to obtain. nuclear stress test as alternative resulting pending, if no significant abnormality would not recommend any further cardiac workup. d/w dr. stevenson Consultation Date/Type/Reason Admit Date/Time Jun 10, 2018 at 11:42 Initial Consult Date Type of Consult Cardiology Requesting Provider: TRUPTI STEVENSON MD Date/Time of Note DATE: 06/12/18 TIME: 10:00 24 HR Interval Summary Free Text/Dictation pt remains with intermittent chest pain improved with morphine she states. no sob, arm/jaw pain or back pain currently. tolerate po. stress test this am, results pending tele reviewed: NSR Detailed Summary Eyes: no complaints ENT: no complaints Respiratory: no complaints Cardiovascular: chest pain Gastrointestinal: no complaints Exam/Review of Systems Vital Signs Vitals Vital Signs Date Temp Pulse Resp B/P (MAP) Pulse Ox O2 O2 Flow FiO2 Time Delivery Rate 06/12/18 98 08:01 06/12/18 97.9 18 90/70 (77) 100 07:13 06/11/18 Room Air 20:25 Intake and Output 06/11/18 06/11/18 06/12/18 1515:00 23:00 07:00 IntakeIntake Total 1000 ml 700 ml 1600 ml BalanceBalance 1000 ml 700 ml 1600 ml Exam Exam Constitutional: alert, oriented, well developed Psych: no complaints, nl mood/affect Head: normocephalic, atraumatic Eyes: nl conjunctiva, EOMI ENMT: nl lips & teeth, nl nasal mucosa & septum Neck: supple, non-tender; No jvd Respiratory: clear to auscultation, normal air movement Cardiovascular: regular rate and rhythm, nl pulses; No bruits, No diastolic murmur, No edema, No systolic murmur, No S3, No S4 Gastrointestinal: soft, nl liver, spleen, non-tender Musculoskeletal: nl extremities to inspection, nl gait and stance Extremities: normal pulses 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, nl mental status, nl speech, nl strength Skin: nl turgor Labs Result Diagram: 06/11/1851906/11/18519 Medications Medications Current Medications Nitroglycerin (Nitroglycerin (Sl Tab) 0.4 Mg) 1 tab Q5M UP TO 3 DOSES PRN SL pain; Start 06/10/18 at 10:30 Anastrozole (Arimidex) 1 mg DAILY PO Last administered on 06/11/18 11:05; Admin Dose 1 MG; Start 06/10/18 at 16:00 Meloxicam (Mobic) 15 mg DAILY PO Last administered on 06/11/18 08:38; Admin Dose 15 MG; Start 06/10/18 at 16:00 Cholecalciferol (Vitamin D) 2,000 unit DAILY PO Last administered on 06/11/18 08:38; Admin Dose 2,000 UNIT; Start 06/10/18 at 16:00 Morphine Sulfate (morphine) 4 mg Q4H PRN IV SEVERE PAIN LEVEL 7-10 Last administered on 06/12/18 05:00; Admin Dose 4 MG; Start 06/10/18 at 16:00 Zolpidem Tartrate (Ambien) 10 mg HS PRN PO INSOMNIA Last administered on 06/11/18 20:27; Admin Dose 10 MG; Start 06/10/18 at 21:00 Alprazolam (Xanax) 0.5 mg TID PRN PO ANXIETY Last administered on 06/12/18 05:02; Admin Dose 0.5 MG; Start 06/10/18 at 19:30 Fish Oil (Fish Oil) 1,000 mg DAILY PO ; Start 06/11/18 at 09:00 Ondansetron HCl (Zofran Inj) 4 mg Q4H PRN IV NAUSEA AND/OR VOMITING Last administered on 06/12/18 05:00; Admin Dose 4 MG; Start 06/11/18 at 07:00 Cyclobenzaprine HCl (Flexeril) 5 mg Q12H PRN PO lower back pain Last administered on 06/12/18 05:02; Admin Dose 5 MG; Start 06/11/18 at 07:00 Docusate Sodium (Colace) 100 mg BID PRN PO CONSTIPATION Last administered on 06/12/18 05:02; Admin Dose 100 MG; Start 06/11/18 at 07:00 Pantoprazole (Protonix Tab) 40 mg BID@0600,1800 PO Last administered on 06/12/18 05:02; Admin Dose 40 MG; Start 06/11/18 at 18:00 SHAQ ROBINS Jun 12, 2018 10:02
[2018-06-12] MEDS: MELOXICAM 15 MG TAB PO SCH (11:07)
[2018-06-12] MEDS: FISH OIL 1,000 MG CAP PO SCH (11:07)
[2018-06-12] MEDS: CHOLECALCIFEROL 2,000 UNIT CAP PO SCH (11:07)
[2018-06-12] MEDS: ANASTROZOLE 1 MG TAB PO SCH (11:13)
--- NOTE | 2018-06-12 12:36 | PN ---
Date/Time of Note Date/Time of Note DATE: 06/12/18 TIME: 12:32 Assessment/Plan VTE Prophylaxis Risk score (from Ns)>0 risk: 2 SCD applied (from Ns): No SCD contraindicated: other Pharmacological prophylaxis: LMWH Lines/Catheters IV Catheter Type (from Nrsg): Saline Lock Assessment/Plan Assessment/Plan A: chest pain - ruled out for GA, cardiology w/u in progress anxiety GERD back pain P: cont current rx await stress test results Result Diagram: 06/11/18 0506/11/18 0520 Subjective 24 Hr Interval Summary Free Text/Dictation Pt cp improved with morphine, thinks additional protonix might also help. No sob, dizziness, palpitations. Had stress test this am, results pending. Exam/Review of Systems Exam Vitals Vital Signs Date Temp Pulse Resp B/P (MAP) Pulse Ox O2 O2 Flow FiO2 Time Delivery Rate 06/12/18 98.1 80 18 114/84 98 11:11 (94) 06/11/18 Room Air 20:25 Intake and Output 06/11/18 06/11/18 06/12/18 1515:00 23:00 07:00 IntakeIntake Total 1000 ml 700 ml 1600 ml BalanceBalance 1000 ml 700 ml 1600 ml Exam gen- nad, nontoxic lungs- CTA heart- RRR abd- +BS, soft, mild epigastric tenderness ext- no cce. Medications Medication Current Medications Nitroglycerin (Nitroglycerin (Sl Tab) 0.4 Mg) 1 tab Q5M UP TO 3 DOSES PRN SL pain; Start 06/10/18 at 10:30 Anastrozole (Arimidex) 1 mg DAILY PO Last administered on 06/12/18at 11:13; A dmin Dose 1 MG; Start 06/10/18 at 16:00 Meloxicam (Mobic) 15 mg DAILY PO Last administered on 06/12/18at 11:07; Admin Dose 15 MG; Start 06/10/18 at 16:00 Cholecalciferol (Vitamin D) 2,000 unit DAILY PO Last administered on 06/12/18at 11:07; Admin Dose 2,000 UNIT; Start 06/10/18 at 16:00 Morphine Sulfate (morphine) 4 mg Q4H PRN IV SEVERE PAIN LEVEL 7-10 Last administered on 06/12/18at 05:00; Admin Dose 4 MG; Start 06/10/18 at 16:00 Zolpidem Tartrate (Ambien) 10 mg HS PRN PO INSOMNIA Last administered on 06/11/18 20:27; Admin Dose 10 MG; Start 06/10/18 at 21:00 Alprazolam (Xanax) 0.5 mg TID PRN PO ANXIETY Last administered on 06/12/18 05:02; Admin Dose 0.5 MG; Start 06/10/18 at 19:30 Fish Oil (Fish Oil) 1,000 mg DAILY PO Last administered on 06/12/18 11:07; Admin Dose 1,000 MG; Start 06/11/18 at 09:00 Ondansetron HCl (Zofran Inj) 4 mg Q4H PRN IV NAUSEA AND/OR VOMITING Last administered on 06/12/18 05:00; Admin Dose 4 MG; Start 06/11/18 at 07:00 Cyclobenzaprine HCl (Flexeril) 5 mg Q12H PRN PO lower back pain Last administered on 06/12/18 05:02; Admin Dose 5 MG; Start 06/11/18 at 07:00 Docusate Sodium (Colace) 100 mg BID PRN PO CONSTIPATION Last administered on 06/12/18 05:02; Admin Dose 100 MG; Start 06/11/18 at 07:00 Pantoprazole (Protonix Tab) 40 mg BID@0600,1800 PO Last administered on 06/12/18 05:02; Admin Dose 40 MG; Start 06/11/18 at 18:00 TRUPTI STEVENSON MD Jun 12, 2018 12:36
[2018-06-12] MEDS: ENOXAPARIN 40 MG/0.4 ML SYG SC SCH (14:20)
[2018-06-12] MEDS: ZOLPIDEM 5 MG TAB PO PRN (20:02)
[2018-06-13] VITALS: PULSE 73
[2018-06-13] MEDS: morphine LIQ (10 MG/5 ML) CUP PO PRN ×4 (00:07→12:07)
[2018-06-13] MEDS: ALPRAZOLAM 0.5 MG TAB PO PRN ×2 (02:08→10:34)
[2018-06-13 03:56] VITALS: BP 124/88; PULSE 63; RESP 18
[2018-06-13 04:00] VITALS: PULSE 74
[2018-06-13] MEDS: PANTOPRAZOLE (EC) 40 MG TAB PO SCH (06:00)
--- NOTE | 2018-06-13 06:22 | NUR ---
END OF SHIFT REPORT PATIENT COMPLAINED OF 7/10 PAIN (BACK) UNRELIEVED BY PO MORPHINE. ACCORDING TO HER, SHE RESPONDS ONLY TO IV MORPHINE FOR PAIN. SHE DESIRES TO GO HOME TODAY OR SOONE[facility]
[2018-06-13 07:23] VITALS: BP 127/78; PULSE 87; RESP 18
[2018-06-13] MEDS: ONDANSETRON 4 MG INJ IV PRN (07:52)
[2018-06-13 08:01] VITALS: PULSE 83
[2018-06-13] MEDS: FISH OIL 1,000 MG CAP PO SCH (08:18)
[2018-06-13] MEDS: CHOLECALCIFEROL 2,000 UNIT CAP PO SCH (08:18)
[2018-06-13] MEDS: ENOXAPARIN 40 MG/0.4 ML SYG SC SCH (08:19)
[2018-06-13] MEDS: MELOXICAM 15 MG TAB PO SCH (08:20)
[2018-06-13] MEDS: ANASTROZOLE 1 MG TAB PO SCH (08:23)
--- NOTE | 2018-06-13 08:23 | PN ---
Date/Time of Note Date/Time of Note DATE: 06/13/18 TIME: 08:20 Assessment/Plan VTE Prophylaxis Risk score (from Nsg)>0 risk: 3 SCD applied (from Ns): No SCD contraindicated: low risk/ambulating Pharmacological prophylaxis: LMWH Lines/Catheters IV Catheter Type (from Nrsg): Saline Lock Assessment/Plan Assessment/Plan A: cp- cardiac w/u negative anxiety GERD low back pain P: d/c home ambien prn cont outpt meds f/u with Dr. Phillips 1-2 wks Result Diagram: 06/11/1851906/11/18519 Subjective 24 Hr Interval Summary Free Text/Dictation Pt feeling better, pain improved. Sleeps better with ambien which helps her sx. Nuclear stress test negative for ischemia. Exam/Review of Systems Exam Vitals Vital Signs Date Temp Pulse Resp B/P (MAP) Pulse Ox O2 O2 Flow FiO2 Time Delivery Rate 06/13/18 97.6 87 18 127/78 98 07:23 (94) 06/11/18 Room Air 20:25 Intake and Output 06/12/18 06/12/18 06/13/18 1515:00 23:00 07:00 IntakeIntake Total 1200 ml BalanceBalance 1200 ml Exam gen- NAD, nontoxic lungs- CTA heart- RRR abd- +BS, soft, nontender ext- no edema Medications Medication Current Medications Nitroglycerin (Nitroglycerin (Sl Tab) 0.4 Mg) 1 tab Q5M UP TO 3 DOSES PRN SL pain; Start 06/10/18 at 10:30 Anastrozole (Arimidex) 1 mg DAILY PO Last administered on 06/12/18at 11:13; Admin Dose 1 MG; Start 06/10/18 at 16:00 Meloxicam (Mobic) 15 mg DAILY PO Last administered on 06/12/18at 11:07; Admin Dose 15 MG; Start 06/10/18 at 16:00 Cholecalciferol (Vitamin D) 2,000 unit DAILY PO Last administered on 06/12/18at 11:07; Admin Dose 2,000 UNIT; Start 06/10/18 at 16:00 Zolpidem Tartrate (Ambien) 10 mg HS PRN PO INSOMNIA Last administered on 06/12/18at 20:02; Admin Dose 10 MG; Start 06/10/18 at 21:00 Alprazolam (Xanax) 0.5 mg TID PRN PO ANXIETY Last administered on 06/13/18 02:08; Admin Dose 0.5 MG; Start 06/10/18 at 19:30 Fish Oil (Fish Oil) 1,000 mg DAILY PO Last administered on 06/12/18 11:07; Admin Dose 1,000 MG; Start 06/11/18 at 09:00 Ondansetron HCl (Zofran Inj) 4 mg Q4H PRN IV NAUSEA AND/OR VOMITING Last administered on 06/13/18 07:52; Admin Dose 4 MG; Start 06/11/18 at 07:00 Cyclobenzaprine HCl (Flexeril) 5 mg Q12H PRN PO lower back pain Last administered on 06/12/18 20:02; Admin Dose 5 MG; Start 06/11/18 at 07:00 Docusate Sodium (Colace) 100 mg BID PRN PO CONSTIPATION Last administered on 06/12/18 14:08; Admin Dose 100 MG; Start 06/11/18 at 07:00 Pantoprazole (Protonix Tab) 40 mg BID@0600,1800 PO Last administered on 06/13/18 06:00; Admin Dose 40 MG; Start 06/11/18 at 18:00 Enoxaparin Sodium (Lovenox) 40 mg DAILY SC Last administered on 06/12/18 14:20; Admin Dose 40 MG; Start 06/12/18 at 13:00 Morphine Sulfate (morphine) 10 mg Q4H PRN PO SEVERE PAIN LEVEL 7-10 Last administered on 06/13/18 07:52; Admin Dose 10 MG; Start 06/12/18 at 14:30 TRUPTI STEVENSON MD Jun 13, 2018 08:23
--- NOTE | 2018-06-13 08:26 | PDOCDIS ---
Discharge Instructions CONDITION [id number] Patient Condition: [id number] Good FOLLOW UP/APPOINTMENTS Follow-up Plan f/u with Dr. Phillips in 1-2wks TRUPTI STEVENSON MD Jun 13, 2018 08:25
[2018-06-13] MEDS ORDERED: ALPR0.5T6 PO (08:30)
[2018-06-13] MEDS ORDERED: ZOLP5TAB PO (08:30)
[2018-06-13] MEDS ORDERED: PANT40TA4 PO (08:30)
[2018-06-13 12:19] VITALS: BP 130/84; PULSE 86; RESP 18
--- NOTE | 2018-06-13 12:31 | DS ---
DATE OF ADMISSION: 06/10/2018 DATE OF DISCHARGE: 06/13/2018 DISCHARGE DIAGNOSES: 1. Chest pain, atypical, ruled out for myocardial infarction. Negative nuclear stress test: 2. Anxiety. 3. Gastroesophageal reflux disease. 4. Low back pain. PROCEDURES: A 2D echocardiogram, nuclear stress test. CONSULTANTS: Cardiology, Shaq Garcia MD HISTORY OF PRESENT ILLNESS: The patient is a 52-year-old female who complained of chest pains for 2 days prior to admission, was at rest, pressure-like, substernal, lasting 5 to 7 seconds up to 7/10 severity, with some radiation to the upper back. Pain was episodic and occurred multiple times in a day. In the morning of admission, the patient developed some dyspnea while crossing the parking lot to work and no associated pain at that time. Subsequently, the pain has become more frequent and stronger so the patient decided to come to the ER. Pain has occurred up to 10 times on the day of admission, similar location and character. No associated symptoms of dizziness, palpitations, shortness of breath aside from the dyspnea on exertion which she noted. No history of hypertension, diabetes, hyperlipidemia, tobacco use or family history of early coronary artery disease. In the ER, the patient was given aspirin, nitro paste. The patient was also given some morphine with some improvement of her symptoms. The patient was admitted for further management. PHYSICAL EXAMINATION: VITAL SIGNS: On admission was notable for temperature 97.8, pulse 80, blood pressure 133/78, pulse ox 96% on room air. GENERAL APPEARANCE: The patient was in no acute distress. She appeared nontoxic. LUNGS: Clear to auscultation. CARDIAC: Regular rate and rhythm with no reproducible chest wall tenderness on palpation. LABORATORY DATA: On admission notable for white count of 6.9, hemoglobin 13.6, platelets 276. Sodium was 140, potassium was 4, BUN was 13 with creatinine 0.54, glucose is 121. Troponin less than 0.012. DIAGNOSTIC DATA: EKG was sinus rhythm with poor R-wave progression, no acute changes. Chest x-ray showed no acute disease. HOSPITAL COURSE: 1. Atypical chest pain. The patient presented with chest pain of increasing severity, very brief in duration. The patient was given aspirin and nitro paste. She was seen in cardiology consultation by Dr. Garcia. The patient did rule out based on serial cardiac enzymes. She had a 2D echo and a nuclear stress test. No evidence of any wall motion abnormalities or ischemia. 2. Anxiety. The patient with history of chronic anxiety. The patient did run out of her Xanax a few days prior to admission, to be resumed as an outpatient. 3. GERD. The patient with history of GERD and irregular usage of Protonix. The patient was given Protonix b.i.d., which she will continue as an outpatient. 4. Low back pain. The patient with history of chronic low back pain, for which she has used muscle relaxants and analgesics in the past which she will continue as an outpatient. DISPOSITION: Discharged the patient home. CONDITION: Good. MEDICATIONS: 1. Alprazolam 0.5 mg q.8 hours p.r.n. 2. Pantoprazole 40 mg b.i.d. 3. Ambien 10 mg at bedtime p.r.n. 4. Arimidex 1 mg daily. 5. Vitamin D2 2000 units daily. 6. Meloxicam 50 mg daily p.r.n. 7. [place] 3 1000 mg daily. FOLLOWUP: The patient is to follow up with Dr. Phillips in 1 to 2 weeks. Dictated By: TRUPTI MENSAH/JAIMEE Conf#: [id number] DID#: [id number] CC: DEREK PHILLIPS MD; SHAQ GARCIA MD;*EndCC* MTDD
[2018-06-13] MEDS: CYCLOBENZAPRINE 10 MG TAB PO PRN (12:50)
--- NOTE | 2018-06-13 13:45 | NUR ---
DISCHARGE SUMMARY: PT SEEN BY DR. STEVENSON THIS AM, WITH ORDERS TO D/C TO HOME. PRESCRIPTIONS SENT OVER TO PTS PREFERRED PHARMACY. DISCHARGE INSTRUCTIONS GIVEN TO PATIENT AND SIDE EFFECT TEACHING AND PT VERBALIZED UNDERSTANDING. REMOVED IV HEPLOCK. PT DENIES CHEST PAIN OR DISCOMFORT. NO S/S OF RESPIRATORY DISTRESS. PT WITH ALL PERSONAL BELONGINGS. FRIEND DOWNSTAIRS IN FRONT OF HOSPITAL TO SAMPLE WORKER PT. AWAITING FOR VOLUNTEER TO ACCOMPANY PT VIA WHEELCHAIR.
--- NOTE | 2018-06-14 13:47 | RADRPT ---
Vent Rate: 86 bpm RR Interval: 0 msec ID Interval: 162 msec QRS Duration: 78 msec QT Interval: 378 msec QTC Interval: 452 msec P-R-T [place]: 49 - 43 - 35 degrees Normal sinus rhythm Cannot rule out Anterior infarct , age undetermined Abnormal ECG Electronically Signed By: Jose Cardona [id number]
== END 2018-06-13 13:47 | disposition home or self-care (01) | DRG 313 ==
LOC: E/R 10:06 → 6WM 11:42 → OBSVTOIN 06-12 15:18
PROVIDERS: ADMIT Internal Medicine; ATTEND Internal Medicine
DX: R07.89 Other chest pain (principal); F41.9 Anxiety disorder, unspecified; M54.5 Low back pain; K21.9 Gastro-esophageal reflux disease without esophagitis; Z85.3 Personal history of malignant neoplasm of breast
CPT/HCPCS: 36415; 71045; 78452; 80048; 80053; 80061; 82550; 82553; 84443; 84484; 85025; 93005; 93017; 93306; 96374; 96375; G0378; A9500; A9505; J1650; J2270; J2405; J2785